=== PATIENT | male | born 1990 | race African-American/Black ===

== ENCOUNTER 2021-01-21 11:34 | Emergency (ER) | payer OTHER, SELFPAY ==
[2021-01-21 11:46] VITALS: BP 170/114; PULSE 110; RESP 18; TEMP 37.1; O2SAT 100
--- NOTE | 2021-01-21 12:06 | PC.NURSE ---
pt takes bp med but does not know name.
[2021-01-21 12:24] LABS: Basophils Percent Auto 0.4 % (0.2-1.2); Eosinophils Absolute Auto 0.1 K/mm3 (0-0.3); Eosinophils Percent Auto 0.7 % (0-4.4); Hematocrit 42.1 % (42.0-52.0); Hemoglobin 14.1 g/dL (14.0-18.0); Immature Granulocyte Absolute 0.02 K/mm3 (0.00-0.031); Immature Granulocyte Percent A 0.3 % (0-0.5); Lymphocytes Absolute Auto 1.28 K/mm3 (0.9-3.2); Lymphocytes Percent Auto 17.3 % (18.3-44.2); Mean Corpuscular HGB Conc 33.5 g/dl (32-36); Mean Corpuscular Hemoglobin 31.1 pg (26-34); Mean Corpuscular Volume 92.7 fl (80-100); Mean Platelet Volume 9.7 fl (7.4-10.4); Monocytes Absolute Auto 0.3 K/mm3 (0.1-0.6); Monocytes Percent Auto 4.3 % (2.6-8.5); Neutrophils Absolute Auto 5.7 K/mm3 (1.3-6.7); Platelet Count Result 212 k/mm3 (150-375); Red Blood Count 4.54 M/mm3 (4.6-6.20); Red Cell Distribution Width 13.6 % (11.5-14.5); White Blood Count 7.4 K/mm3 (4.5-10.0)
--- NOTE | 2021-01-21 12:31 | ED.GENADULT ---
HPI - General Adult General Chief complaint: Psychiatric Symptoms Stated complaint: suicidal thoughts Time Seen by Provider: 01/21/21 11:47 Source: patient History of Present Illness HPI narrative: Patient is a 30 y/o male complaining of having a severe break down. He states that this started today while at work. He is considering overdosing. He states that he had recent in the family and other family problem and all of that is make him stressed out. Related Data Home Medications Medication Instructions Recorded Confirmed Unable to Obtain Home Medications 01/21/21 01/21/21 Allergies Allergy/AdvReac Type Severity Reaction Status Date / Time No Known Allergies Allergy Verified 01/21/21 12:03 Review of Systems Constitutional: Constitutional: Denies chills, Denies fever(s), Denies headache(s) and Denies weakness Eyes: Eyes: Denies blurry vision ENT: Denies headache(s) and Denies neck pain Cardiovascular: Cardiovascular: Denies chest pain and Denies dyspnea Respiratory: Respiratory: Denies cough and Denies dyspnea Gastrointestinal: Gastrointestinal: Denies abdominal pain, Denies diarrhea, Denies nausea and Denies vomiting Genitourinary: Genitourinary: Denies hematuria and Denies dysuria Musculoskeletal: Musculoskeletal: Denies back pain and Denies neck pain Neurologic: Denies headache(s) and Denies weakness Psychiatric: Psychiatric: Reports depression and Reports suicidal ideation [facility] Social History Social History Gender identity (if verbalized by the patient): Male Exam Const: General: no acute distress and well developed Orientation/consciousness: oriented to person, oriented to place, oriented to time and patient oriented x3 HENMT: Head: normocephalic Ears: external ears normal General nose exam: Normal external nose present Eyes: General: appearance normal, both eyes and all related structures Conjunctivae: conjunctivae normal Neck: Neck: normal visual inspection and full ROM Chest: Chest palpation & inspection: normal inspection of the chest and no tenderness Resp: Effort & Inspection: normal respiratory effort Auscultation: clear to auscultation bilaterally Cardio: Rate: regular rate Rhythm: regular rhythm GI: GI Palp: No abdominal tenderness and Yes Soft to palpation Skin: General skin exam: normal color and turgor normal Neuro: General: oriented to person, oriented to place, oriented to time and patient oriented x3 Cognition (Neuro): normal cognition Extrem: General: normal to inspection, full ROM and no pedal edema Psych: Appearance: grossly normal Mental Status: mental status grossly normal Affect: Sad affect present Thought content: Yes Suicidality present Course Reevaluation(s) Reevaluation #1: Rechecked. Patient feels better. He does not feel suicidal at this time. Patient was evaluated by crisis thought be safe for discharge. Date: 01/21/21 Time: 15:47 Vital Signs Vital signs: Vital Signs Temperature 37.1 C 01/21/21 11:46 Pulse Rate 110 H 01/21/21 11:46 Respiratory Rate 18 01/21/21 11:46 Blood Pressure 170/114 H 01/21/21 11:46 Pulse Oximetry 100 01/21/21 11:46 Temperature 37.1 C 01/21/21 11:46 Pulse Rate 83 01/21/21 16:11 Respiratory Rate 16 01/21/21 16:11 Blood Pressure 165/112 H 01/21/21 16:11 Pulse Oximetry 100 01/21/21 16:11 Medical Decision Making Vital Signs Vital Signs: Vital Signs Temperature 37.1 C 01/21/21 11:46 Pulse Rate 110 H 01/21/21 11:46 Respiratory Rate 18 01/21/21 11:46 Blood Pressure 170/114 H 01/21/21 11:46 Pulse Oximetry 100 01/21/21 11:46 Temperature 37.1 C 01/21/21 11:46 Pulse Rate 83 01/21/21 16:11 Respiratory Rate 16 01/21/21 16:11 Blood Pressure 165/112 H 01/21/21 16:11 Pulse Oximetry 100 01/21/21 16:11 Lab Data Result diagrams: 01/21/21 12:16 01/21/21 12:16 Lab
[2021-01-21 12:37] LABS: Alanine Aminotransferase 24 U/L (4-50); Albumin Level 4.7 g/dL (3.5-5.1); Alkaline Phosphatase 77 U/L (38-126); Anion Gap 11 mmol/L (8-16); Aspartate Amino Transferase 21 U/L (17-59); Bilirubin,Total 0.4 mg/dL (0.2-1.3); Blood Urea Nitrogen 14 mg/dL (9-20); Calcium 9.2 mg/dL (8.4-10.2); Carbon Dioxide 24 mmol/L (22-30); Chloride 109 mmol/L (98-107); Estimated CRCL calculation 98 ml/min; Estimated Glomerular Filt Rate > 60; Ethanol < 10 mg/dL (<10); Glucose 112 mg/dL (75-110); Potassium 3.8 mmol/L (3.4-5.0); Sodium 144 mmol/L (137-145)
[2021-01-21 13:32] LABS: Appearance Urine Clear (Clear); Bilirubin Urine Negative (Negative); Color Urine Yellow (Yellow); Glucose Urine UA Negative (Negative); Ketones Urine Negative (Negative); Leukocyte Esterase Ur Negative LEU/UL (Negative); Nitrate Urine Negative (Negative); Protein Urine Negative (Negative); Urobilinogen Urine 0.2 mg/dL (<2.0)
[2021-01-21 13:34] LABS: Add Urine Microscopic? YES; Blood Urine Trace-Intact (Negative)
[2021-01-21 13:37] LABS: RBC Urine 0-2 /hpf (0-2)
[2021-01-21 13:48] LABS: Amphetamine Screen Urine Negative (Negative); Barbiturate Screen Urine Negative (Negative); Benzodiazepines Screen Urine Negative (Negative); Cannabinoid Screen Urine Positive (Negative); Cocaine Screen Urine Negative (Negative); Methadone Screen Urine Negative (Negative); Opiate Screen Urine Negative (Negative); Phencyclidine Screen Urine Negative (Negative)
[2021-01-21 16:11] VITALS: BP 165/112; PULSE 83; RESP 16; O2SAT 100
[2021-01-22 02:01] LABS: SARS-CoV-2 RNA PCR Negative
== END 2021-01-21 16:11 | disposition home or self-care (01) ==
PROVIDERS: Emergency Provider Emergency Medicine; PCP Family Medicine
DX: F32.9 Major depressive disorder, single episode, unspecified (principal); Z20.822 Contact with and (suspected) exposure to COVID-19
CPT/HCPCS: 36415; 80053; 80307; 81001; 84443; 85025; 99284; C9803; U0003; U0005